=== PATIENT | male | born 1995 | race American Indian/Alaskan Native ===

== ENCOUNTER 2017-10-16 10:54 | Emergency (ER) | payer SELFPAY ==
[2017-10-16 10:54] VITALS: BMI 21.8
--- NOTE | 2017-10-16 11:48 | C.PDOC ---
History Of Present Illness 21-year-old male, is brought in via BLS for AMS. Patient is a drug abuser and was found to be unresponsive by family this morning and was given Narcan .4mg on field and is currently awake at this time, patient was noted by EMS to have a seizure and was given Ativan by paramedics. No other complaints. Time Seen by Provider: 10/16/17 11:32 Chief Complaint (Nursing): Altered Mental Status History Per: Patient, EMS Past Medical History Reviewed: Historical Data, Nursing Documentation, Vital Signs Vital Signs: Last Vital Signs Temp 98.4 F 10/16/17 17:33 Pulse 77 10/16/17 17:33 Resp 18 10/16/17 17:33 BP 134/77 10/16/17 17:33 Pulse Ox 99 10/16/17 17:33 Family History: States: No Known Family Hx - Social History Hx Tobacco Use: Yes Hx Alcohol Use: Yes Hx Substance Use: Yes - Immunization History Hx Tetanus Toxoid Vaccination: Yes Hx Influenza Vaccination: No Hx Pneumococcal Vaccination: No Review Of Systems Except As Marked, All Systems Reviewed And Found Negative. Constitutional: Negative for: Fever Cardiovascular: Negative for: Chest Pain, Palpitations Respiratory: Negative for: Shortness of Breath Gastrointestinal: Negative for: Nausea, Vomiting Neurological: Positive for: Seizures Psych: Negative for: Suicidal ideation Physical Exam - Physical Exam Appears: Non-toxic, No Acute Distress Skin: Warm, Dry, No Rash Head: Atraumatic, Normacephalic Eye(s): bilateral: Normal Inspection, PERRL Nose: Normal Oral Mucosa: Moist Lips: Normal Appearing Neck: Normal ROM Cardiovascular: Rhythm Regular, No Murmur Respiratory: Normal Breath Sounds, No Accessory Muscle Use Gastrointestinal/Abdominal: Soft, No Tenderness, No Guarding, No Rebound Extremity: Normal ROM Neurological/Psych: Oriented x3, Normal Speech ED Course And Treatment - Laboratory Results Result Diagrams: 10/16/17 12:25 10/16/17 12:25 ECG: Interpreted By Me, Viewed By Me ECG Rhythm: Sinus Rhythm O2 Sat by Pulse Oximetry: 99 (on RA) Pulse Ox Interpretation: Normal Medical Decision Making Medical Decision Making: Prior Visits Notes and records from previous visits were reviewed. Patient was not seen in this ER last night. On re-exam, the patient is still drowsy but arousable with painful stimul. Vitals remains WNLs. Narcan IV given with no effect. Labs ordered. On second re-exam, the patient remains drowsy and resting in bed. On third re- exam, the patient is A&O x3. lungs are CTA, heart is RRR, abdomen is soft, non- tender and tolerating PO well. Ambulatory in the ED with steady gait. Disposition - Disposition Referrals: [facility] [Outside] Disposition: HOME/ ROUTINE Disposition Time: 16:21 Condition: GOOD Additional Instructions: Follow up with the medical doctor within 1-2 days. Return if worsened. Prescriptions: Azithromycin [Zithromax] 250 mg PO DAILY #6 tab Loratadine [Claritin] 10 mg PO DAILY #10 tab Instructions: Polysubstance Abuse (ED) Forms: LOG[employer] (Guinean) - Clinical Impression Clinical Impression: Polysubstance abuse, Bronchitis - Scribe Statement The provider has reviewed the documentation as recorded by the Scribe (Silvia Nguyen) All medical record entries made by the Scribe were at my direction and personally dictated by me. I have reviewed the chart and agree that the record accurately reflects my personal performance of the history, physical exam, medical decision making, and the department course for this patient. I have also personally directed, reviewed, and agree with the discharge instructions and disposition.
[2017-10-16 12:32] LABS: BASO # 0.1 K/uL (0.0-0.2); BASO % 0.7 % (0.0-2.0); EOS # 0.3 K/uL (0.0-0.7); EOS % 3.1 % (0.0-4.0); HEMOGLOBIN 14.3 g/dL (12.0-18.0); LYMPH # 0.9 K/uL (1.0-4.3); LYMPH % 10.7 % (20.0-40.0); MEAN CORPUSCULAR HEMOGLOBIN 30.6 pg (27.0-31.0); MEAN CORPUSCULAR HGB CONC 33.3 g/dL (33.0-37.0); MEAN PLATELET VOLUME 8.4 fL (7.2-11.7); MONO # 0.5 K/uL (0.0-0.8); MONO % 5.9 % (0.0-10.0); NEUT % 79.6 % (50.0-75.0); RBC 4.68 Mil/uL (4.40-5.90); RED CELL DISTRIBUTION WIDTH 12.7 % (11.5-14.5); WHITE BLOOD COUNT 8.8 K/uL (4.8-10.8)
[2017-10-16 12:45] LABS: SQUAMOUS EPITHIAL < 1 /hpf (0-5); URINE BACTERIA RARE (<OCC); URINE BILIRUBIN NEGATIVE (NEGATIVE); URINE BLOOD NEGATIVE (NEGATIVE); URINE CLARITY Clear (Clear); URINE COLOR Yellow (YELLOW); URINE GLUCOSE (UA) NORMAL (Normal); URINE LEUKOCYTE ESTERASE NEG Leu/uL (Negative); URINE NITRATE NEGATIVE (NEGATIVE); URINE PROTEIN NEGATIVE (NEGATIVE); URINE UROBILINOGEN NORMAL mg/dL (0.2-1.0)
[2017-10-16 12:58] LABS: ALB/GLOB RATIO 1.2 (1.0-2.1); ALBUMIN 4.1 g/dL (3.5-5.0); ALT/SGPT 33 U/L (21-72); AST/SGOT 53 U/L (17-59); BLOOD UREA NITROGEN 10 mg/dL (9-20); CALCIUM 8.1 mg/dl (8.6-10.4); GFR AFRICAN-AMERICAN > 60; GFR NON-AFRICAN AMERICAN > 60
[2017-10-16] MEDS ORDERED: Naloxone 0.4 mg/ml Inj (Adult) ONE (13:02)
[2017-10-16 13:08] LABS: BARBITURATES, UR NEGATIVE (NEGATIVE); OPIATES, UR NEGATIVE (NEGATIVE)
[2017-10-16] MEDS: Naloxone 0.4 mg/ml Inj (Adult) IV ONE (13:09)
[2017-10-16 13:19] LABS: BENZODIAZEPINES, UR POSITIVE (NEGATIVE); PHENCYCLIDINE, UR POSITIVE (NEGATIVE)
[2017-10-16 16:23] VITALS: O2SAT 99
[2017-10-16 17:35] VITALS: BP 134/77; PULSE 77; RESP 18; TEMP 98.4
== END 2017-10-16 17:33 | disposition home or self-care (01) ==
LOC: C.ER 10:54
DX: J40 Bronchitis, not specified as acute or chronic (principal); F19.10 Other psychoactive substance abuse, uncomplicated; Z87.891 Personal history of nicotine dependence
CPT/HCPCS: 80053; 81001; 85025; 99285; G0480; J2310

== ENCOUNTER 2018-12-30 19:28 | Emergency (ER) | payer MEDICAID ==
[2018-12-30 19:28] VITALS: BMI 21.8
[2018-12-30] MEDS ORDERED: Sodium Chloride 0.9% 1,000 ML IV ONE (20:20)
--- NOTE | 2018-12-30 20:31 | C.PDOC ---
History Of Present Illness 23 year old male presents to the ED BIBA for substance abuse. As per EMT, patient was found staggering and appearing lethargic under the influence of heroin. HPI limited due to patient's condition. Time Seen by Provider: 12/30/18 19:48 Chief Complaint (Nursing): Substance Abuse History Per: Patient, EMS History/Exam Limitations: intoxication Onset/Duration Of Symptoms: Mins Current Symptoms Are (Timing): Still Present Suicide/Self Injury Attempted (Context): None Modifying Factor(s): Narcotics (heroin ) Additional History Per: EMS Past Medical History Reviewed: Historical Data, Nursing Documentation, Vital Signs Vital Signs: Last Vital Signs Temp 97.6 F 12/30/18 19:44 Pulse 74 12/30/18 19:44 Resp 14 12/30/18 19:44 BP 137/84 12/30/18 19:44 Pulse Ox 95 12/30/18 19:44 - Medical History PMH: No Chronic Diseases Surgical History: No Surg Hx Family History: States: No Known Family Hx - Social History Hx Tobacco Use: Yes Hx Alcohol Use: Yes Hx Substance Use: Yes - Immunization History Hx Tetanus Toxoid Vaccination: Yes Hx Influenza Vaccination: No Hx Pneumococcal Vaccination: No Review Of Systems Review Of Systems: ROS cannot be obtained secondary to pt's inabilty to answer questions. Physical Exam - Physical Exam Appears: Non-toxic, No Acute Distress Skin: Warm, Dry Head: Normacephalic Eye(s): bilateral: Other (constricted pupils ) Neck: Trachea Midline, Supple Chest: Symmetrical Cardiovascular: Rhythm Regular Respiratory: No Rales, No Rhonchi, No Wheezing, Other (shallow breathing ) Gastrointestinal/Abdominal: Soft, No Tenderness Extremity: Bilateral: No Pedal Edema, Normal Color And Temperature Pulses: Left Dorsalis Pedis: Normal, Right Dorsalis Pedis: Normal Neurological/Psych: Other (responsive to painful stimuli, intoxicated ) ED Course And Treatment - Laboratory Results Result Diagrams: 12/30/18 20:26 12/30/18 20:26 Lab Interpretation: No Acute Changes O2 Sat by Pulse Oximetry: 95 (NC) Pulse Ox Interpretation: Normal Progress Note: 10:00 Patient continues to be obtunded but vital signs remain stable. 12:00 Patient now awake and alert, ambulatory to the bathroom. Reevaluation Time: 00:18 Reassessment Condition: Improved Medical Decision Making Medical Decision Making: Plan - Bloodwork - IV Fluids - O2 via NC Patient's Pulse Ox rate was 91 in RA, increased to 96 with NC. Disposition Counseled Patient/Family Regarding: Studies Performed, Diagnosis, Need For Followup - Disposition Disposition: HOME/ ROUTINE Disposition Time: 00:19 Condition: IMPROVED Instructions: Drug Abuse and Drug Addiction (DC), Opioid Use Disorder Forms: [employer] (Irish) - Clinical Impression Clinical Impression: Opioid abuse with intoxication - Scribe Statement The provider has reviewed the documentation as recorded by the Scribmariluz Benjamin All medical record entries made by the Daltonibmariluz were at my direction and personally dictated by me. I have reviewed the chart and agree that the record accurately reflects my personal performance of the history, physical exam, medical decision making, and the department course for this patient. I have also personally directed, reviewed, and agree with the discharge instructions and disposition.
[2018-12-30 20:35] LABS: BASO % 0.6 % (0.0-2.0); EOS # 0.6 K/uL (0.0-0.7); EOS % 11.3 % (0.0-4.0); HEMOGLOBIN 13.3 g/dL (12.0-18.0); LYMPH # 1.7 K/uL (1.0-4.3); MEAN CELL VOLUME 88.2 fL (80.0-94.0); MEAN CORPUSCULAR HEMOGLOBIN 28.5 pg (27.0-31.0); MEAN CORPUSCULAR HGB CONC 32.3 g/dL (33.0-37.0); MEAN PLATELET VOLUME 7.9 fL (7.2-11.7); MONO # 0.5 K/uL (0.0-0.8); MONO % 9.3 % (0.0-10.0); NEUT # 2.8 K/uL (1.8-7.0); NEUT % 48.8 % (50.0-75.0); NRBC % 0.1 % (0.0-2.0); RBC 4.67 Mil/uL (4.40-5.90); RED CELL DISTRIBUTION WIDTH 14.7 % (11.5-14.5); WHITE BLOOD COUNT 5.7 K/uL (4.8-10.8)
[2018-12-30 20:52] LABS: ALB/GLOB RATIO 1.4 (1.0-2.1); ALBUMIN 4.1 g/dL (3.5-5.0); ALT/SGPT 17 U/L (21-72); AST/SGOT 35 U/L (17-59); BLOOD UREA NITROGEN 11 mg/dL (9-20); CALCIUM 9.3 mg/dl (8.6-10.4); GFR NON-AFRICAN AMERICAN > 60
[2018-12-30 22:07] VITALS: O2SAT 95
[2018-12-31 00:35] VITALS: BP 112/52; PULSE 72; RESP 16; TEMP 98.3
[2018-12-31 02:13] LABS: BARBITURATES, UR NEGATIVE (NEGATIVE); PHENCYCLIDINE, UR NEGATIVE (NEGATIVE)
[2018-12-31 02:16] LABS: BENZODIAZEPINES, UR POSITIVE (NEGATIVE); OPIATES, UR POSITIVE (NEGATIVE)
== END 2018-12-30 23:50 | disposition home or self-care (01) ==
LOC: C.ER 19:28
DX: F11.129 Opioid abuse with intoxication, unspecified (principal)
CPT/HCPCS: 80053; 80320; 85025; 99285; J7030